=== PATIENT | male | born 1960 | race Caucasian/White ===

== ENCOUNTER → 2017-08-11 | Outpatient (CLI) | payer OTHER ==
[~2017-08-11] MED LIST: ASPIR 8181 M1 PO; FISH OIL 1,001000 M2 PO; NIACIN50 MG PO; NORCO 5-325 TA1 EACH PO; VITAMIN E400 UNI5 PO
== END ==
LOC: CAT 10:17
DX: Z13.6 Encounter for screening for cardiovascular disorders (principal); I25.10 Atherosclerotic heart disease of native coronary artery without angina pectoris; Z82.49 Family history of ischemic heart disease and other diseases of the circulatory system